=== PATIENT | male | born 1970 | race Hispanic/Latino ===

== ENCOUNTER 2017-03-20 12:47 | Inpatient (IN) ==
[2017-03-20 14:50] LABS: MANUAL DIFF NEEDED? NO
[2017-03-20 15:08] LABS: BASO% 0.3 % (0.0-0.8); HEMATOCRIT 20.4 % (42.0-52.0); HEMOGLOBIN 6.7 g/dL (14.0-18.0); IMM GRAN# 0.03 X1000 (0.0-0.04); IMM GRAN% 0.3 % (0.0-0.5); LYMPH# 2.02 X1000 (1.2-3.4); LYMPH% 20.2 % (20.5-51.1); MCH 29.3 PG (27-31); MCHC 32.8 g/dL (33-37); MCV 89.1 FL (81-99); NEUT% 69.2 % (42.2-75.2); PLT 288 X1000 (130-400); RBC 2.29 XMIL (4.7-6.1)
[2017-03-20 15:10] LABS: INR 1.08; PROTIME 11.4 Seconds (9.2-11.7); PTT 33.9 Seconds (22.0-36.0)
[2017-03-20 15:42] LABS: FERRITIN 694 ng/mL (30-400)
[2017-03-20 15:52] LABS: CALCIUM 6.8 mg/dL (8.8-10.2); POTASSIUM 4.8 mmol/L (3.5-5.1); TOTAL BILIRUBIN 0.44 mg/dL (0.20-1.00); TOTAL PROTEIN 6.2 g/dL (6.3-8.3)
[2017-03-20] MEDS ORDERED: TYLENOL PO PRN (16:09)
--- NOTE | 2017-03-20 16:19 | HISTORY AND PHYSICAL ---
HISTORY OF PRESENT ILLNESS: A 46-year-old who started to feel pretty bad several weeks ago and has progressively gotten worse. General malaise, anorexia. He has lost a lot a weight. He feels cold, poor appetite. He has been followed by Dr. Nini bauman states for renal failure and he has approached end-stage and will need to initiate dialysis. OTHER PAST MEDICAL HISTORY: Hypertension. I think some hypercholesterolemia and diabetes. He has had pneumonia in the past that has required a chest tube in the left chest. FAMILY HISTORY: Noncontributory. ALLERGIES: No known drug allergies. SOCIAL HISTORY: Negative for alcohol or tobacco. REVIEW OF SYSTEMS: General: No weight gain. Actually he thinks he has lost about 30 pounds in last couple of months. Respiratory: No increased work of breathing or dyspnea. Cardiovascular: No chest pain or tachy palpitation. GI: Unremarkable. : Unremarkable. PHYSICAL EXAMINATION: VITAL SIGNS: Temperature 97.7 degrees, pulse 86, respirations 18, blood pressure 175/105. HEENT: Pupils equal, round, lungs are clear in all lung peralta. CARDIOVASCULAR: Regular rhythm and rate without murmur or S3. ABDOMEN: Soft. SKIN: Warm and dry. Weight 133 pounds. DIAGNOSTICS/LABORATORY: White count 9990, hematocrit 20, platelet count 288,000. Chemistry: Ferritin 694, vitamin B12 pending, folate 18.3, PT is 11.4, PTT was 33.9. LIST OF MEDICINES AT HOME: I do not have that list. ASSESSMENT AND PLAN: 1. End-stage renal disease, to initiate I believe hemodialysis. The plan is to put in a report and he feels pretty bad, general malaise. Volume status looks okay. His hematocrit is 20, hemoglobin 6.7, so we may decide to give him some blood when we initiate dialysis. 2. Anemia, normocytic, secondary to renal dysfunction, chronic disease. I did check a ferritin. It is 694. Folate is elevated and normal. 3. Diabetes mellitus type 2. We will check pattern sugars. 4. Hypertension. We will see what his home medications are and see if we can get his blood pressure down a little bit. cc: Nader Murillo MD
--- NOTE | 2017-03-20 17:24 | CONSULTATION ---
DATE OF CONSULTATION: 03/20/2017 Mr. Polo is a 46-year-old [place] male who is a patient of Dr. Roderick Ball. He is admitted through our emergency department earlier today with end-stage renal disease, and significant anemia. We were asked to evaluate him for access including a Perm-A-Cath and peritoneal dialysis catheter per Dr. Terrazas. PAST MEDICAL HISTORY: Hypertension, pneumonia, left chest tube, diabetes, hypercholesterolemia. FAMILY HISTORY: Noncontributory. ALLERGIES: No known drug allergies. MEDICINES: Unknown. SOCIAL HISTORY: Does not smoke. REVIEW OF SYSTEMS: A 14-point review of systems was performed and except for being slim and not feeling well related to the history of present illness it is essentially negative. PHYSICAL EXAMINATION: General: Mr. Polo is a middle aged, [place] male who looks chronically ill and he is very slim. He is awake, cooperative. He has no jaundice. No oral lesions. No cervical or supraclavicular lymphadenopathy. Heart: Has a regular rate. Lungs: Clear to auscultation and percussion bilaterally. Abdomen: Flat. There is no palpable mass. No previous scars. No evidence of hernia. No costovertebral tenderness. Rectal Exam: Was not performed. He does have palpable femoral pulses. He has no peripheral edema. Neurologic: No neurologic deficits. His hematocrit is 20%. His BUN and creatinine are 81 and 10.9. PLAN: 1. Right Perm-A-Cath using fluoroscopy. 2. Laparoscopic assisted peritoneal dialysis catheter. I have discussed both of these procedures in detail with the patient at the bedside this evening including risks of bleeding, infection, nonfunctional catheters, injury to intra-abdominal contents with catheter placement or trocar placement. Possible pneumothorax. He understands the need for both of these catheters and the risks and wants to proceed. cc: Rosy Aguilar MD
[2017-03-20] MEDS: APRESOLINE PO SCH (18:58)
[2017-03-20] MEDS ORDERED: SODIUM BICARBONATE 8.4% 150 MEQ in D5W 1,000 ML IV SCH (21:58)
[2017-03-20] MEDS: SODIUM BICARBONATE PO SCH (22:33)
[2017-03-20] MEDS ORDERED: LABETALOL IV ONE (23:59)
[2017-03-21] MEDS: PRILOSEC PO SCH (06:34)
[2017-03-21] MEDS ORDERED: XYLOCAINE 1%/EPI 1:100,000 ONE (06:42)
[2017-03-21] MEDS ORDERED: NS 250 ML ONE (06:42)
[2017-03-21] MEDS ORDERED: HEPARIN ONE ×5 (06:42→09:31)
[2017-03-21] MEDS ORDERED: TIGHT: 0.2 ML/HR MISC PRN (07:13)
[2017-03-21] MEDS ORDERED: HEPARIN IV PRN (07:13)
[2017-03-21] MEDS ORDERED: NS 2,000 ML MISC PRN (07:13)
[2017-03-21] MEDS: SODIUM BICARBONATE PO SCH ×3 (08:04→18:09)
[2017-03-21] MEDS: APRESOLINE PO SCH ×3 (08:04→18:09)
[2017-03-21] MEDS ORDERED: KEFZOL ONE (08:20)
[2017-03-21] MEDS ORDERED: MARCAINE 0.25% PF/EPI 1:200,000 ONE (08:21)
[2017-03-21] MEDS ORDERED: NS 500 ML ONE (08:22)
--- NOTE | 2017-03-21 08:42 | CONSULTATION ---
DATE OF CONSULTATION: 03/21/2017 REASON FOR CONSULTATION: Chronic kidney disease stage 5 with uremia. HISTORY OF PRESENT ILLNESS: Mr. Polo is a 46-year-old man with diabetes and poorly- managed renal failure. We have been discussing ESRD management as an outpatient, and he has been somewhat reluctant to proceed, such that he skipped his appointment with the surgeon. He came to the office yesterday with profound weakness, fatigue, anorexia, nausea, and stated he was ready to begin treatment. His plan is for peritoneal dialysis, but he is in need of dialysis marginally, so we will begin hemodialysis with a tunneled catheter, and then transition. PAST MEDICAL HISTORY: As above. He has diabetes, hypertension, hyperlipidemia. HOME MEDICATIONS: Include lisinopril, sitagliptin, ondansetron, multivitamin. ALLERGIES: None. SOCIAL HISTORY: He drives a truck. No alcohol or tobacco. , has children. FAMILY HISTORY: Noncontributory. REVIEW OF SYSTEMS: Otherwise noncontributory. PHYSICAL EXAMINATION: Vital Signs: Blood pressure 162/90, heart rate 102, respirations 16, afebrile. General: He is in no acute distress. Skin: Warm and dry. HEENT: Conjunctivae are pale. Oropharynx is clear. Neck: Supple. Neck veins are not distended. Heart: Regular without gallops. Lungs: Equal breath sounds. No crackles or wheezes. Abdomen: Soft, nontender. Bowel sounds present. Extremities: Minimal edema. No clubbing or cyanosis. IMPRESSION: 1. Chronic kidney disease stage 5. We have had an ongoing discussion about uremia, uremic symptoms, hemodialysis, peritoneal dialysis, including risks and benefits of both, and he understands and is agreeable to proceed. I have asked Dr. Aguilar to place a tunneled dialysis catheter and a peritoneal dialysis catheter at the same time today, and he will then have hemodialysis today and consecutively for 3 days. Today's treatment will be short, for 2 hours, with 200 blood flow and 1 L ultrafiltration using a 2-potassium bath. 2. Metabolic acidosis. He was started on oral bicarbonate last night, but we will address this with dialysis going forward. 3. Anemia. Hemoglobin is below 7, so I will type and cross and give 1 unit of packed red blood cells. 4. Hypertension. We will continue his current treatment, and reassess as he is treated. cc: Dayday Terrazas MD
[2017-03-21] MEDS ORDERED: NS 2,000 ML ONE (09:17)
[2017-03-21] MEDS ORDERED: KEFZOL 1 GM/D5W 1 GM/50 ML IVPB ONE (09:18)
--- NOTE | 2017-03-21 09:43 | PROGRESS NOTE ---
DATE: 03/21/2017 SUBJECTIVE: He states he feels about the same. He did get some sleep last night. He remains afebrile. OBJECTIVE: Vital Signs: Temperature 97.9, pulse 100, respirations 16, blood pressure 160/90. Eyes: Pupils are equal, round. Lungs: Are clear in all lung peralta. Cardiovascular: Exam regular rhythm and rate without murmur or S3. Abdomen: Soft. Skin: Warm and dry. LAB: White count 9990, hematocrit 20, platelet count 288,000 from yesterday. Creatinine is 10.9, sodium 141, potassium 4.8, chloride 112, bicarb 8. Anion gap was 21. Calcium 6.8, B12 and folate looked good. ASSESSMENT AND PLAN: 1. End-stage renal disease. To pursue hemodialysis. Dr. Aguilar consulted. He will put in a right PermCath using fluoroscopy and then laparoscopic-assisted peritoneal dialysis catheter as he is going to pursue peritoneal dialysis. The renal ultrasound which was done June 2016 was a negative exam. 2. Just general malaise. He has lost weight. Nutrition, protein calorie malnutrition. He hopefully can improve his appetite and p.o. intake as his azotemia has improved. 3. Diabetes mellitus type 2. Follow pattern sugars. 4. Hypertension. Review of his orders. I do not see any change at this point. Note, that I did put him on some Apresoline, blood pressure looks better. cc: Nader Murillo MD
[2017-03-21] MEDS ORDERED: EPHEDRINE ONE (11:18)
[2017-03-21] MEDS ORDERED: XYLOCAINE-MPF 2% ONE (11:18)
[2017-03-21] MEDS ORDERED: QUELICIN (DOSE) ONE (11:19)
[2017-03-21] MEDS ORDERED: 1/2 NS 500 ML ONE (11:19)
[2017-03-21] MEDS: MORPHINE ONE ×2 (11:22→11:35)
--- NOTE | 2017-03-21 11:37 | OPERATIVE NOTE ---
PROCEDURE DATE: 03/21/2017 PREOPERATIVE DIAGNOSIS: End-stage renal disease requiring dialysis. POSTOPERATIVE DIAGNOSIS: End-stage renal disease requiring dialysis. PRINCIPAL PROCEDURE: 1. Right internal jugular PermCath using ultrasound and fluoroscopy. 2. Laparoscopic assisted placement of intra-abdominal peritoneal dialysis catheter. SURGEON: Dr. Rosy Aguilar. PHONE BANKER: vidal Hinescontrol systems technician. ANESTHESIA: General in addition to local anesthetic. ESTIMATED BLOOD LOSS: 20 mL. DRAINS: None. INDICATIONS: Mr. Justino Polo is a 46-year-old, slim Citizen Of [place] male who has end-stage renal disease and needs hemodialysis. We were also asked to place the peritoneal dialysis catheter by his cook starch, Dr. Terrazas. FINDINGS: These were 2 separate procedures in 2 different areas of the body. We placed the right internal jugular PermCath first and then we re-prepped and went to the abdomen to place the peritoneal dialysis catheter. We felt that both catheters were in good position at the end of the these 2 procedures and were both were functioning well. DESCRIPTION OF PROCEDURE: The patient was brought to the operating room, placed supine, received general anesthesia, was intubated. His right neck, shoulder, and anterior chest were prepped and draped within a sterile field. He received Ancef prophylactically. We turned his head to the left. We used an Ioban on the skin. I used ultrasound to identify the right internal jugular vein between the 2 heads of the right sternocleidomastoid muscle, base of right neck. I used local anesthetic. Then I used an 18-gauge needle to access this internal jugular vein and through this needle, I placed a guidewire into the right side of the heart. I checked the position of the guidewire using fluoroscopy. I made a counterincision on the anterior right chest and tunneled a precurved, 19 cm in total length PermCath from the chest incision to the neck incision. Sequential dilators were placed over the guidewire. Then we placed a dilator and sheath over the guidewire into the superior vena cava. The dilator was removed and through the sheath, we placed the distal end of our precurved PermCath and placed it 13 cm into the superior vena cava. We peeled away the sheath. The catheter was functioning well. It was flushed with heparin saline. We secured the catheter to its exit site on the chest with two 2-0 nylon stitches. Then we closed the small incision at the base of the right neck with a 4-0 Monocryl subcuticular stitch. Steri- Strips were applied to the neck incision. A dry dressing was applied, followed by an OpSite to the exit site anterior right chest of the PermCath. We then directed our attention to the peritoneal dialysis catheter. We took down all the previous drapes. Then the abdomen was prepped and draped within the sterile field. Again, I used an Ioban on the abdomen. We began this procedure by making a small transverse incision just to the right of the midline below the umbilicus. This incision was made with a 15 blade scalpel. It was carried down through the skin into the subcutaneous tissue. Forceps and scissors were used to identify the anterior rectus sheath just to the right of the midline. Using a 15 blade scalpel, I made an incision in the anterior rectus sheath, bluntly divided the rectus muscle, and got to the posterior rectus sheath where I placed two 3-0 Prolene stay stitches. We lifted the posterior sheath up with scissors. We made an incision in the posterior sheath and the peritoneum. Then I placed a pigtail peritoneal dialysis catheter, which was on a guiding ismael, intra-abdominally and directed it into the pelvis. The ismael was removed from the catheter. We secured the 1st cuff of the peritoneal dialysis catheter to the posterior rectus fascia with our 3-0 Prolene stitches. We then tunneled the part of the catheter that was outside the abdomen in the subcutaneous tissue and it was brought out through a separate stab incision laterally, right abdomen. The 2nd cuff was in the subcutaneous tissue. We then closed the anterior rectus sheath around the catheter with 2-0 Vicryl stitches. We created a pneumoperitoneum through our peritoneal dialysis catheter by placing the CO2 tubing into our peritoneal dialysis catheter. I then placed a 5 mm trocar, left upper quadrant of the abdomen. We used a 5 mm camera to make sure that our peritoneal catheter was in good position and it was. We did not have to place another port to manipulate this catheter. It was directed inferiorly into the pelvis midline. We placed about 300 mL of heparin saline through this peritoneal dialysis catheter and it flushed well. It was laying within the fluid. The pneumoperitoneum was allowed to dissipate through our 5 mm port. The port was removed. The catheter at its exit site in the right side of the abdomen was secured to the skin with a 2-0 nylon stitch. Then all skin incisions were closed with 4-0 Monocryl subcuticular stitches. Steri-Strips were applied. A dry dressing and OpSite were applied at the exit site of the peritoneal dialysis catheter. These were 2 separate procedures in 2 separate areas of the body. He tolerated both of them well. Both catheters we felt were functioning and were in good position. Plans are for him to go to the recovery room and then be readmitted to the floor for consideration of dialysis later today. cc: oRsy Aguilar MD
[2017-03-21] MEDS ORDERED: FENTANYL ONE (12:28)
[2017-03-21] MEDS ORDERED: DIPRIVAN 1% ONE (12:29)
[2017-03-21] MEDS: ZOFRAN IV PRN (18:38)
[2017-03-21] MEDS: PERIDEX MT SCH (20:27)
[2017-03-22] MEDS: PRILOSEC PO SCH (06:03)
[2017-03-22] MEDS: ZOFRAN IV PRN ×3 (06:05→18:20)
[2017-03-22] MEDS ORDERED: NS 2,000 ML MISC PRN (07:24)
[2017-03-22] MEDS ORDERED: HEPARIN IV PRN (07:24)
[2017-03-22] MEDS ORDERED: TIGHT: 0.2 ML/HR MISC PRN (07:24)
[2017-03-22 08:26] LABS: MANUAL DIFF NEEDED? NO
[2017-03-22 08:46] LABS: BASO% 0.1 % (0.0-0.8); EOS# 0.01 X1000 (0.0-0.7); EOS% 0.1 % (0.0-10.0); HEMATOCRIT 23.2 % (42.0-52.0); HEMOGLOBIN 7.7 g/dL (14.0-18.0); IMM GRAN# 0.02 X1000 (0.0-0.04); IMM GRAN% 0.2 % (0.0-0.5); LYMPH# 0.88 X1000 (1.2-3.4); LYMPH% 9.9 % (20.5-51.1); MCH 29.2 PG (27-31); MCHC 33.2 g/dL (33-37); MCV 87.9 FL (81-99); MONO# 0.62 X1000 (0.11-0.59); MPV 10.9 FL (7.4-10.4); NEUT% 82.7 % (42.2-75.2); PLT 282 X1000 (130-400); RBC 2.64 XMIL (4.7-6.1)
[2017-03-22] MEDS ORDERED: NS 2,000 ML ONE (08:52)
[2017-03-22] MEDS ORDERED: HEPARIN ONE (08:53)
[2017-03-22 09:18] LABS: HEPATITIS PROFILE ACUTE SEE COMMENTS
[2017-03-22 09:33] LABS: ALBUMIN 3.2 g/dL (3.5-5.0); POTASSIUM 3.8 mmol/L (3.5-5.1)
--- NOTE | 2017-03-22 09:34 | PROGRESS NOTE ---
DATE: 03/22/2017 SUBJECTIVE: The patient states that he has continued to have severe nausea and vomiting, and has been unable to keep any food down to any extent. He is receiving antidiuretic. He continues to feel extremely poorly. He continues to have shortness of breath with ambulation and severe onset of fatigue with ambulation. He did undergo dialysis yesterday, and did not have any difficulties during that. OBJECTIVE: Vital Signs: Temperature 99.1 degrees, pulse 108, respiratory rate 16, blood pressure 169/89. Intake 800 mL; output 1 L. General: On exam, this is a middle-aged gentleman resting in bed. He is awake and alert. He does appear to feel poorly. He is in no acute distress. HEENT: Normocephalic, atraumatic. Conjunctivae remain very pale. AMAIRANI. Oral mucosa is moist. Tongue is midline. Neck: Supple. Trachea midline without JVD. Cardiovascular: Regular rate and rhythm. There is no murmur or gallop. Pulmonary: He has equal excursion. He is clear bilaterally. Abdomen: Soft, with positive bowel sounds. : Not inspected. He is voiding with hemodialysis assist. Extremities: Trace pretibial edema. No clubbing or cyanosis. He is moving his extremities. Integumentary: Skin is warm and dry. There is a tunneled dialysis catheter noted to the right upper chest wall. Insertion site clean, dry, and intact, and dressing intact. LAB DATA: Pending. ASSESSMENT: 1. Chronic kidney disease V with severe uremia, nausea, vomiting, severe fatigue. The patient had a tunneled dialysis catheter and a peritoneal dialysis catheter placed yesterday. Patient underwent hemodialysis without difficulty. We will plan to dialyze him again today on a 2 K bath with removal of 1-2 L of 3 hour treatment on low-flow as this is his second today. 2. Profound anemia. The patient on admission to the hospital had a hemoglobin of less than 7. He had symptomatic anemia with shortness of breath, chest pain and severe fatigue on exertion. Of note, the patient had reported at one point that he had difficulty even walking across the room. We are checking labs this morning. He did receive 1 unit of packed red blood cells. We will add the erythropoietin. We would prefer to withhold administering packed red blood cells as he is in an age group that has a good chance of transplant in the future. 3. Acidosis. He had severe acidosis on admission. He was started on bicarbonate. He was treated with dialysis yesterday. Again, we are checking labs this morning; they are pending. We will again treat with dialysis today. 4. Hypertension. His blood pressure has been difficult to control while he has been in the hospital. He had been on lisinopril at home. We may need to add adjunct therapy for management. Continues to assess as this may improve as he has continued dialysis. PLAN: Plan is for patient to undergo a third dialysis treatment in the morning. At that time if he does have an outpatient schedule in place and meets criteria from the primary standpoint for discharge, we would be in agreement for him to go home after dialysis Saturday. Dictated by HORACIO Alvarez for Dayday Terrazas MD cc: Dayday Terrazas MD
[2017-03-22 09:36] LABS: CALCIUM 7.1 mg/dL (8.8-10.2)
[2017-03-22] MEDS ORDERED: ZOFRAN ONE (13:01)
[2017-03-22] MEDS ORDERED: SODIUM CHLORIDE 0.9% 10 ML ONE (13:06)
[2017-03-22] MEDS: SODIUM BICARBONATE PO SCH ×3 (13:43→18:19)
[2017-03-22] MEDS: PERIDEX MT SCH ×2 (13:44→21:18)
[2017-03-22] MEDS: APRESOLINE PO SCH ×3 (13:44→18:19)
--- NOTE | 2017-03-22 14:26 | PROGRESS NOTE ---
DATE: 03/22/2017 SUBJECTIVE: Going to undergo dialysis today and feels about the same. OBJECTIVE: Vital Signs: Temperature 98.4 degrees, pulse 100, respirations 18, blood pressure 191/103. Weight 145. HEENT: Pupils are equal and round. Neck: CVP less than 6 cm. Lungs: Clear in all lung peralta. Cardiovascular: Regular rhythm and rate, without murmur or S3. URINE OUTPUT: With dialysis, recorded 4000 mL. ASSESSMENT AND PLAN: 1. End-stage renal disease, chronic kidney disease stage 5, severe uremia, nausea, vomiting, and severe fatigue. Initiating hemodialysis and then I think the plan is to place a peritoneal dialysis catheter, which was placed yesterday. 2. Profound anemia. Aware. Hemoglobin less than 7. He had symptomatic anemia, shortness of breath. I think the plan is to give him some blood, 1 unit of blood with dialysis. 3. Acidosis. Severe acidosis on admission. Started on bicarbonate and I am going to treat the dialysis. 4. Hypertension. Blood pressure is still a little elevated. Will follow and see how he does after dialysis. I started him on some Apresoline and I think we can increase that. Will go up to 50 mg p.o. t.i.d. cc: Nader Murillo MD
[2017-03-23] MEDS: PRILOSEC PO SCH (06:18)
[2017-03-23] MEDS: SODIUM BICARBONATE PO SCH ×2 (08:35→13:31)
[2017-03-23] MEDS: PERIDEX MT SCH (08:35)
[2017-03-23] MEDS: APRESOLINE PO SCH ×2 (08:35→13:30)
[2017-03-23] MEDS ORDERED: PRINIVIL PO SCH (09:00)
[2017-03-23] MEDS ORDERED: NS 2,000 ML MISC PRN (09:08)
[2017-03-23] MEDS ORDERED: HEPARIN ONE (09:16)
[2017-03-23] MEDS ORDERED: NS 2,000 ML ONE (09:16)
--- NOTE | 2017-03-23 10:09 | PROGRESS NOTE ---
DATE: 03/23/2017 SUBJECTIVE: The patient is sitting up in bed. He hopes to go home today. OBJECTIVE: Vital Signs: Temperature 98.3 degrees, pulse 100, respiratory rate 18, blood pressure 162/89. Output: He had 2 L removed on dialysis. PHYSICAL EXAMINATION: General: This is a middle-aged gentleman resting in bed. He is awake and alert in no acute distress. HEENT: Normocephalic, atraumatic. Oral mucosa moist. Neck is supple. Trachea midline. No JVD. Cardiovascular: Regular rate and rhythm. Pulmonary: Equal excursion. He is clear bilaterally. Abdomen is soft with positive bowel sounds. He has a peritoneal dialysis catheter noted to the right lower quadrant. It is clean, dry and intact. : Not inspected. He is voiding. Extremities: There is no clubbing, cyanosis or edema today. He is moving all extremities and he is ambulatory. Integumentary: Tunnel dialysis catheter noted to right upper chest wall, clean , dry, and intact. No bleeding noted. LAB DATA: Hemoglobin 7.7, hematocrit 23.2, and platelet count of 282,000. Sodium 145. Potassium 3.8, CO2 of 16. Creatinine 8.2. Phosphorus 7.5. These labs were on 2016. ASSESSMENT AND PLAN: 1. Chronic kidney disease with severe uremia, nausea, vomiting, and severe fatigue. The patient has undergone two dialysis treatments. He has had some improvement with symptoms. I will plan to dialyze him again today on a 3 K bath/UF 1-2 L if tolerated for 4- hour treatment. He has an outpatient plan in progress. This information will be given to the patient today. From a renal standpoint, he can be discharged after his dialysis if vitals remain stable at the discretion of the primary. 2. Profound anemia. Hemoglobin remains quite low. He did receive 1 unit of packed red blood cells secondary to a hemoglobin of less than 7 while he has been in the hospital. We will continue to treat this with erythropoietin while as an outpatient. Again, we would refrain from transfusing blood unless it was an absolute necessity secondary to his young age and future transplant status. 3. Acidosis. This is improving. 4. Hypertension. He had hydralazine started in the hospital. I am restarting his home lisinopril. Seen, data reviewed, discussed with Tirso Pool on 03/23/17. I agree with the above assessment and plan of care. rg Dictated by HORACIO Alvarez for Dayday Terrazas MD cc: Dayday Terrazas MD [facility]
--- NOTE | 2017-03-23 10:17 | PROGRESS NOTE ---
DATE: 03/23/2017 SUBJECTIVE: Feels a little better. Breathing a little better. OBJECTIVE: Vital Signs: Afebrile, temp 98.3 degrees, pulse 100, respirations of 18. Blood pressure is between 162-191/89-103. Eyes: Pupils are equal, round. Lungs: Clear in all lung peralta. Cardiovascular exam: Regular rhythm and rate without murmur or S3. Abdomen: Soft. ASSESSMENT AND PLAN: End-stage renal disease for hemodialysis today. Volume status is good. Electrolyte good. Acid status improving. We will discuss with Dr. Terrazas when he gets to go home. The plan is to try and to put in a peritoneal catheter for peritoneal dialysis. Review of orders, review of lab: No changes at this time. cc: Nader Murillo MD
[2017-03-23] MEDS ORDERED: EPOGEN SUBQ ONE (11:09)
[2017-03-23 12:45] VITALS: BP 149/79
--- NOTE | 2017-03-23 16:32 | DISCHARGE SUMMARY ---
ADMISSION DATE: 03/20/2017 DISCHARGE DATE: 03/23/2017 HOSPITAL COURSE: Presented with renal function that has deteriorated, symptoms of azotemia, malaise, anorexia and significant acidosis. He was initiated on hemodialysis. Dr. Aguilar placed a right internal jugular PermCath using ultrasound and fluoroscopy. The laparoscopic placement of intraabdominal peritoneal dialysis catheter. The patient showed continued clinical improvement. [place] he could go home 03/23/2017. He will follow up as an outpatient to initiate peritoneal dialysis. He has an outpatient plan and progress, anemia remained quite low, he did get 1 unit of packed red blood secondary his hemoglobin being less than 7. Acidosis showed significant improvement. DISCHARGE ORDERS: He will continue his iron tablet which is Folivane-Plus capsule 1 a day and then lisinopril 20 mg a day, Januvia 100 mg daily, sodium bicarbonate 650 mg b.i.d. I did add Apresoline to his regimen as blood pressure was running pretty high. Blood pressure has come down nicely. Will continue Apresoline 25 mg b.i.d. cc: Nader Murillo MD
[2017-03-24] MEDS ORDERED: VENOFER 200 MG in NS 150 ML IV SCH (09:00)
== END 2017-03-23 17:25 | disposition home or self-care (01) ==
LOC: DIRADM 12:47 → 4N 13:49
PROVIDERS: ATTEND Emergency Medicine

== ENCOUNTER 2017-06-19 09:25 | Observation (INO) ==
--- NOTE | 2017-06-19 07:32 | EKG Report ---
Test Performed on : 06/19/2017 07:18:41 AM Test Reason : elevated BP Blood Pressure : / mmHG Vent. Rate : 100 BPM Atrial Rate : 100 BPM P-R Int : 156 ms QRS Dur : 080 ms QT Int : 366 ms P-R-T Axes : 087 078 078 degrees QTc Int : 472 ms Normal sinus rhythm. Normal ECG No previous ECGs available Confirmed by Roddy Conley DO ([id number]) on 06/22/2017 12:27:10 PM
[2017-06-19 07:37] LABS: MANUAL DIFF NEEDED? NO
[2017-06-19 07:45] LABS: BASO% 0.4 % (0.0-0.8); EOS# 0.26 X1000 (0.0-0.7); EOS% 2.4 % (0.0-10.0); HEMATOCRIT 38.8 % (42.0-52.0); HEMOGLOBIN 13.2 g/dL (14.0-18.0); IMM GRAN# 0.03 X1000 (0.0-0.04); IMM GRAN% 0.3 % (0.0-0.5); LYMPH# 2.52 X1000 (1.2-3.4); LYMPH% 23.6 % (20.5-51.1); MCH 29.7 PG (27-31); MCV 87.2 FL (81-99); MONO# 0.71 X1000 (0.11-0.59); MONO% 6.6 % (1.7-9.3); MPV 11.5 FL (7.4-10.4); NEUT% 66.7 % (42.2-75.2); PLT 227 X1000 (130-400); RBC 4.45 XMIL (4.7-6.1)
[2017-06-19 08:02] LABS: CALCIUM 7.5 mg/dL (8.8-10.2); POTASSIUM 3.4 mmol/L (3.5-5.1)
--- NOTE | 2017-06-19 09:23 | CONSULTATION ---
DATE OF CONSULTATION: 06/19/2017 REFERRING PHYSICIAN: Dr. Dayday Terrazas M.D. PRIMARY CARE PROVIDER: Dr. Jovan Ball D.O. ADMITTING HOSPITALIST: Dr. Elton Whalen M.D. INDICATION FOR CONSULTATION: 1. Nausea with vomiting. 2. Diarrhea. 3. Unplanned weight loss. 4. Anemia. 5. Weakness. 6. Fatigue. HISTORY OF PRESENT ILLNESS: The patient is a 46-year-old male who presents with a 2 year history of the above GI concerns. He is currently on peritoneal dialysis secondary to end-stage renal disease from hypertension and diarrhea. Because of his persistent GI symptoms and failure to respond to conservative management, he was referred for endoscopic evaluation. However, on admission to outpatient surgery, he was noted to have a blood pressure of 220/ 130 with a pulse of 95. He received labetalol 20 mg and Apresoline 10 mg. Post treatment, his blood pressure remains 182/113. His pulse is 103 with respirations 16 and temp of 98.8 degrees. In light of his persistently elevated blood pressure, it is recommended that he be admitted for further management of his hypertension prior to endoscopic therapy. Of note, the patient will require ampicillin 1 g and gentamicin 0.6 mg/kg IV prior to his next endoscopic therapy. He received the dose of gentamicin but the ampicillin was not administered prior to cancelling his procedure. PAST MEDICAL HISTORY: 1. Degenerative disk disease. 2. Diabetes. 3. Hyperlipidemia. 4. Hypertension. 5. Sarcoidosis. 6. Thyroid disease. 7. Hypercalcemia. 8. Osteoarthritis. 9. Vitamin B12 deficiency. 10. Vitamin D deficiency. PAST SURGICAL HISTORY: 1. Eye surgery with retinal detachment in the right eye, status post repair. 2. Placement of peritoneal dialysis catheter. MEDICATION ALLERGIES: None. HOME MEDICATIONS: 1. Folivane Plus capsule 125/1 mg daily. 2. Januvia 100 mg once daily. 3. Lisinopril 20 mg once daily. 4. Zofran 4 mg every 6-8 hours as needed. 5. Questran Light 4 g packet once daily. 6. Sodium bicarbonate tablets 650 mg 2 twice a day. 7. Tums extra-strength 300 mg as needed. FAMILY HISTORY: Remarkable for pancreatic cancer in his father. SOCIAL HISTORY: Negative for alcohol, tobacco, or recreational drug use. He is a former smoker who stopped smoking in 1994. He is with 3 children and works as a class b truck driver. REVIEW OF SYSTEMS: Positive for appetite loss, weight loss, fatigue, dizziness , double vision, intermittent dysphagia, weakness and fatigue associated with anemia. In addition, he reports diarrhea, nausea with vomiting, rectal irritation with defecation, heartburn, indigestion, and new fecal incontinence. PHYSICAL EXAMINATION: Vital signs: On exam, his blood pressure is 182/113, pulse 103, respirations 16, temperature of 98.8 degrees. His oxygen saturation is 95% on room air. HEENT: Negative for oropharyngeal mucosal lesions. Pulmonary: Lungs are clear to auscultation with normal expiratory effort. Cardiovascular: Reveals regular rate and rhythm with no murmurs, gallops, or rubs. Abdomen: Reveals normoactive bowel sounds. The abdomen is soft, nontender, with no rebound or guarding. There is a peritoneal dialysis catheter in the right lower quadrant. Extremities: Negative for cyanosis, clubbing, or edema. He has evidence of muscle wasting. IMPRESSIONS: 1. Nausea with vomiting. 2. Diarrhea. 3. Anemia. 4. Abnormal weight loss. 5. Dysphagia. 6. Anorexia. 7. Fecal incontinence. 8. Diabetes mellitus 2. 9. Uncontrolled primary pulmonary hypertension. 10. End-stage renal disease. RECOMMENDATION: 1. Because of the patient's uncontrolled blood pressure that has been poorly responsive to labetalol and Apresoline, we will cancel his procedure today. 2. Per Dr. Terrazas, I will admit the patient to the hospitalist service for further management of his hypertension. 3. We will reschedule an EGD with dilation to assess the nausea with vomiting, diarrhea, dysphagia, and anemia once his blood pressure is better controlled. 4. He has never had a screening colonoscopy. We will perform that at the same time that we perform his EGD. 5. Given that the patient's endoscopy is on hold, please obtain a gastric emptying study as an inpatient to further evaluate the nausea with vomiting and loss of appetite pending endoscopic evaluation. 6. Additional recommendations to follow based on his clinical course. cc: MD Dayday Eaton MD Thomas E. Lockard, DO Raphael K. Quansah, MD MTDD
[~2017-06-19 09:25] MED LIST: 1/2 NS 1,000 ML IV SCH; 1/2 NS 500 ML ONE; AMPICILLIN 1 GM/NS 1 GM/50 ML IVPB IV ONE; APRESOLINE ONE; DIPRIVAN 1% ONE; FENTANYL ONE; GENTAMICIN 80 MG/NS 80 MG/50 ML IVPB IV ONE; GENTAMICIN IV PER PHARMACY MISC SCH; LABETALOL IV ONE; LR 1,000 ML ONE; SODIUM CHLORIDE 0.9% INJ SCH
[2017-06-19 10:31] LABS: ALBUMIN 2.8 g/dL (3.5-5.0); DIRECT BILIRUBIN 0.2 mg/dL (0.00-0.20); TOTAL BILIRUBIN 0.67 mg/dL (0.20-1.00); TOTAL PROTEIN 5.6 g/dL (6.3-8.3)
[2017-06-19] MEDS ORDERED: APRESOLINE IV PRN (11:24)
--- NOTE | 2017-06-19 12:34 | Diag Imaging Result Doc PS360 ---
EXAM: CT HEAD W/O CONTRAST HISTORY: htn urgency, weakness/dizziness TECHNIQUE: CT of the head without contrast with dose reduction (clarity.) COMMENT: There are calcifications in the vertebral and internal carotid arteries. There is no evidence of mass effect, bleed, or abnormal extra-axial fluid collection. There are no previous studies available for comparison. The visualized paranasal sinuses are clear. There is no evidence of acute bony disease. IMPRESSION: No evidence of acute intracranial disease. Electronically signed by Raheel Galarza 06/19/2017 12:32 PM
--- NOTE | 2017-06-19 12:35 | Diag Imaging Result Doc PS360 ---
EXAM: CHEST-2 VIEWS HISTORY: htn urgency TECHNIQUE: COMPARISON: None. FINDINGS: The lungs are well expanded. The heart is not enlarged. The vessels are not distended. There are no infiltrates. No pleural effusions although I believe there is minimal pleural thickening in the left base. IMPRESSION: No acute abnormality. Electronically signed by Daniele Florez 06/19/2017 12:32 PM
--- NOTE | 2017-06-19 12:37 | Diag Imaging Result Doc PS360 ---
EXAM: CT ABDOMEN/PELVIS W/O CONTRAST HISTORY: n/v/d x years TECHNIQUE: CT urogram without contrast with dose reduction (clarity.) COMMENT: There is a peritoneal dialysis catheter in the pelvis. There is extensive arteriosclerosis. There are some pleural and parenchymal fibrotic scars particularly in the lateral costophrenic sulcus on the left. There is no evidence of hydronephrosis. There is what appears to be a tiny calculus in the upper pole of the left kidney. There are no calcified gallstones. There is no evidence of bowel obstruction. The appendix is unremarkable in appearance. The urinary bladder is unremarkable. There is no evidence of acute disease in the visualized portions of the skeleton. IMPRESSION: Nonobstructing left nephrolithiasis. No evidence of acute disease. Electronically signed by Raheel Galarza 06/19/2017 12:35 PM
--- NOTE | 2017-06-19 12:55 | HISTORY AND PHYSICAL ---
COVER MAKER: Dr. Areli Bloom. HISTORICAL INTERPRETER: Dr. Dayday Terrazas. CHIEF COMPLAINT: Hypertension, nausea, vomiting and diarrhea. HISTORY OF PRESENT ILLNESS: Mr. Polo is a 46-year-old male, with a history of ESRD on peritoneal dialysis, diabetes mellitus and hypertension, who was scheduled today for EGD and colonoscopy after he has been complaining of diarrhea for multiple years, as well as nausea and vomiting. Preoperatively, the patient's blood pressure was noted to be greater than 220. The procedure was canceled and the patient was directly admitted to our service. The patient himself reports that over the past week or so he has been unsteady on his feet, a little bit dizzy and been having a headache. He denies any chest pain or shortness of breath. No abdominal pain. He does report diarrhea and vomiting, but this is chronic. No fevers, no chills. No cough or congestion. He was given labetalol and hydralazine preoperatively. This brought his blood pressure down to 180 systolic, but it was felt that he needed to be directly admitted for further treatment and evaluation. PAST MEDICAL HISTORY: 1. ESRD on peritoneal dialysis. 2. Hypertension. 3. Diabetes mellitus. 4. Chronic diarrhea and vomiting. SURGICAL HISTORY: He has had eye surgery and peritoneal dialysis catheter inserted. SOCIAL HISTORY: No tobacco, alcohol or drug use. He is . is at the bedside. He is on disability for ESRD. REVIEW OF SYSTEMS: Fourteen-point review of systems obtained and found to be negative with the exception of the HPI. ALLERGIES: No known drug allergies. HOME MEDICATIONS: 1. Apresoline 50 mg daily. 2. Iron with vitamin C one daily. 3. Lisinopril 20 mg daily. 4. Januvia 100 mg daily. 5. Sodium bicarbonate 650 mg b.i.d. PHYSICAL EXAMINATION: VITAL SIGNS: Blood pressure is 166/90, heart rate 106, respiratory rate is 12, O2 saturation 98% on room air. GENERAL: This is a frail appearing, 46-year-old male, lying in hospital bed in no acute distress. NEUROLOGIC: The patient is awake and alert. He follows commands without focal deficits. HEENT: Head is atraumatic, normocephalic. His pupils are equal, round, reactive to light. Oral mucosa is moist. NECK: Trachea is midline. No JVD. CHEST: Clear to auscultation bilaterally. CV: Regular rate and rhythm. S1, S2 is noted. No murmurs. GI: Soft, nondistended, nontender. Bowel sounds are positive. EXTREMITIES: No edema, clubbing or cyanosis. Pulses are diminished, but palpable bilaterally. DIAGNOSTIC DATA: WBC 10.68, hemoglobin 13.2, hematocrit 38.8, platelet count 227. Sodium 133, potassium 3.4, chloride 98, CO2 22, anion gap 13, BUN 37, creatinine 7.1, glucose 252. Calcium 7.5, total bilirubin 0.67 and direct bilirubin 0.2. AST 14, ALT 18, alkaline phosphatase 92, albumin 2.8. ASSESSMENT AND PLAN: 1. Hypertensive urgency: The patient exhibits no encephalopathic features; however, we are going to check a head CT given the fact that he has had some dizziness and unsteadiness. He is only on lisinopril at home which means we have quite a bit of room to go up on blood pressure medications. Will start by adding Norvasc 5 mg twice daily. In addition to his lisinopril, will add more medications or increased dosages if necessary. 2. Chronic nausea, vomiting, diarrhea: Will go ahead and check a CT of his abdomen and pelvis as well. Add antiemetics and Dr. Bloom is following along. 3. ESRD on peritoneal dialysis: Dr. Terrazas has been consulted. Overall his acid-base electrolytes and hemoglobin and hematocrit are all stable. 4. Diabetes mellitus: We will stop his Januvia. Add pattern sugars and sliding scale insulin. Check hemoglobin A1c. 5. Deep vein thrombosis prophylaxis: This will be provided with heparin. Further recommendations to follow. Dictated by HORACIO Mcwilliams for Malou Mccarthy MD cc: HORACIO Mcwilliams MD
[2017-06-19] MEDS: HUMALOG SUBQ SCH ×3 (13:15→20:10)
[2017-06-19 13:35] LABS: HEMOGLOBIN A1C 12.3 % (4.8-6.0)
[2017-06-19] MEDS: PROTONIX IV SCH ×2 (16:01→20:10)
[2017-06-19] MEDS: NORVASC PO SCH ×2 (16:01→20:10)
[2017-06-19] MEDS ORDERED: KLOR-CON PO ONE (18:10)
--- NOTE | 2017-06-19 18:31 | CONSULTATION ---
DATE OF CONSULTATION: 06/19/2017 REASON FOR CONSULTATION: Assistance with management of hypertension and renal failure. CONSULTING PHYSICIAN: Dr. Bloom who called me by phone from the GI lab. HISTORY OF PRESENT ILLNESS: Mr. Polo is a 46-year-old man, who recently initiated renal replacement therapy using peritoneal dialysis. He has diabetic nephropathy that is stage 5. He also has hypertension, as well as chronic nausea and diarrhea. He had plans for panendoscopy by Dr. Bloom today. He presented to the outpatient surgery area with marked hypertension and because of this, his procedure was delayed because his systolic was over 200. He was also having a headache, dizziness and some unsteadiness on his feet. This is actually chronic. He did not take his blood pressure medicines either the morning of admission or the day prior. No chest pain, palpitation, shortness of breath. No swelling. He is having no problems with his dialysis. PAST MEDICAL HISTORY: As above. HOME MEDICATIONS: Include Apresoline, iron, lisinopril, Januvia, sodium bicarbonate. ALLERGIES: None. SOCIAL HISTORY: No alcohol or tobacco. He is and lives with his who is currently attending him. No alcohol or tobacco. FAMILY HISTORY: Noncontributory. REVIEW OF SYSTEMS: Otherwise noncontributory. PHYSICAL EXAMINATION: Vital Signs: Blood pressure 138/74, heart rate 103, respiration 18, afebrile. Generally: He is a middle-aged man sitting in a wheelchair in no acute distress. Skin: Warm and dry. HEENT: Conjunctivae are pink and moist. Pupils are equal and round. Oropharynx is dry. Neck: Supple. Trachea is midline. Neck veins are not distended. Heart: Regular with S4 gallop. No murmurs. Lungs: Have equal excursion. Equal breath sounds. No crackles or wheezes. No accessory muscle use or retractions. Abdomen: Soft and nontender with normal bowel sounds. Exit site is nontender. Extremities: Have no edema, clubbing, or cyanosis. Neurologic Exam: Grossly nonfocal. LABORATORY DATA: Reviewed. IMPRESSION: 1. End-stage kidney disease. We will continue his routine dialysis prescription tonight. 2. Severe hypertension. Caused by missing his home medications. He has been treated with intravenous therapy in the emergency room. His home medications have been restarted. Blood pressure control is good at this point. 3. Electrolytes: Mild hypokalemia. I will address this with oral replacement. 4. Acid base. Serum bicarbonate is appropriate at 22. I will continue his home sodium bicarbonate. 5. Nausea, vomiting, diarrhea. We will allow Dr. Bloom to manage. cc: Dayday Terrazas MD
[2017-06-19] MEDS: HEPARIN SUBQ SCH (20:10)
[2017-06-19] MEDS: SODIUM BICARBONATE PO SCH (20:10)
[2017-06-20] MEDS: PROTONIX IV SCH ×3 (02:07→22:01)
[2017-06-20 07:03] LABS: HEMATOCRIT 37.4 % (42.0-52.0); HEMOGLOBIN 12.6 g/dL (14.0-18.0); MCH 30.7 PG (27-31); MCHC 33.7 g/dL (33-37); MPV 11.9 FL (7.4-10.4); RBC 4.11 XMIL (4.7-6.1)
[2017-06-20 07:37] LABS: ALBUMIN 2.4 g/dL (3.5-5.0); CALCIUM 7.8 mg/dL (8.8-10.2); POTASSIUM 3.6 mmol/L (3.5-5.1)
[2017-06-20] MEDS ORDERED: SITAGLIPTIN 100 MG PO SCH (09:00)
[2017-06-20] MEDS: HUMALOG SUBQ SCH ×4 (09:16→22:01)
[2017-06-20] MEDS: PRINIVIL PO SCH (09:18)
[2017-06-20] MEDS: SODIUM BICARBONATE PO SCH ×2 (09:18→22:00)
[2017-06-20] MEDS: APRESOLINE PO SCH (09:18)
[2017-06-20] MEDS: NORVASC PO SCH ×2 (09:18→22:00)
[2017-06-20] MEDS: HEMOCYTE PLUS CAPSULE PO SCH (09:19)
[2017-06-20] MEDS: HEPARIN SUBQ SCH ×2 (09:19→22:01)
[2017-06-20] MEDS: LANTUS SUBQ SCH (09:22)
--- NOTE | 2017-06-20 09:47 | PROGRESS NOTE ---
DATE: 06/20/2017 SUBJECTIVE: No nausea or vomiting. No headaches, no shortness of breath. OBJECTIVE: Vital Signs: Blood pressure 164/90, heart rate 98, respirations 20, afebrile. General: He is a thin, middle-aged man in no distress. Skin: Warm and dry. Eyes: Conjunctivae are pink. Pupils are equal. Neck: Neck veins are not distended. Heart: Regular with an S4. No rubs. Lungs: Have equal breath sounds. No crackles or wheezes. Abdomen: Soft, nontender. Bowel sounds are present. Extremities: Have no edema, clubbing, or cyanosis. LABORATORY DATA: Sodium 138, potassium 3.6, chloride 98, bicarbonate 21, BUN 38, creatinine 6.8, hemoglobin 12.6. IMPRESSION: 1. Hypertension. Controlled acceptably on his outpatient regimen. Okay to proceed with gastrointestinal procedures from my perspective. 2. End-stage kidney disease. Continue his standard peritoneal dialysis prescription. 3. Malnutrition. No changes. cc: Dayday Terrazas MD
--- NOTE | 2017-06-20 13:43 | PROGRESS NOTE ---
DATE: 06/20/2017 SUBJECTIVE: Patient reports feeling fine. Denies any headache, lightheadedness. OBJECTIVE: Vital Signs: Temperature 98.9, heart rate 98, respiratory rate 20, blood pressure 164/90, O2 saturation 98% on room air. General examination: This is a 46-year-old, male, lying in bed in no acute distress. HEENT: Head is normocephalic, atraumatic. Anicteric sclerae and pale conjunctivae. Mucous membranes moist. Neck: Supple. No JVD noted. No carotid bruits. No lymphadenopathy. No thyromegaly. Cardiovascular exam: S1, S2 heard. No murmurs, gallops, or rubs. Regular rate and rhythm. Respiratory exam: Clear bilaterally to auscultation. No work of breathing or using accessory muscles. Abdomen: Soft, a little bit distended. Nontender to palpation. Extremities: No clubbing, cyanosis, or edema. Peripheral pulses present in both legs. Neurological: Patient moves 4 extremities. Awake and alert. LABORATORY DATA: Reviewed. ASSESSMENT AND PLAN: 1. Hypertensive urgency. Patient now is feeling fine. This condition is completely resolved with blood pressure between 160s and 170s. 2. Chronic nausea and vomiting. Dr. Bloom is on board and apparently this patient was scheduled for esophagogastroduodenoscopy today. Will see if that can be done tomorrow. 3. End-stage renal disease on peritoneal dialysis. Dr. Terrazas following. 4. Diabetes mellitus type 2. We will stop Januvia. The patient is on sliding scale insulin. 5. Deep vein thrombosis prophylaxis on heparin. The patient is stable from my standpoint with blood pressure that is controlled, and also the patient is on peritoneal dialysis per Dr. Terrazas. The patient will be discharged from the hospital when cleared by GI. cc: Chris Smith MD
--- NOTE | 2017-06-20 21:05 | PROGRESS NOTE ---
DATE: 06/20/2017 SUBJECTIVE: The patient is feeling much better. His blood pressure is now under control. He has significant concerns about undergoing endoscopy and prepping for a colonoscopy. He is concerned that his elevated blood pressure was related to the GoLYTELY prep and would like to defer scheduling repeat endoscopy until Dr. Terrazas and I have had a chance to confer about his bowel prep and monitoring during the bowel prep. Unfortunately, tomorrow's operating room schedule is completely full. We will have to make arrangements for the patient to undergo a 2-day bowel prep as an outpatient and scheduled this procedure in the next 1-2 weeks. I will speak with Dr. Terrazas to discuss his care. At this time, I would continue supportive management. cc: MD Jovan Eaton DO Reginald D. Gladish, MD Cesar Garcia-Rodriguez, MD
[2017-06-21] MEDS: HUMALOG SUBQ SCH (07:03)
[2017-06-21 07:43] VITALS: BP 118/76
[2017-06-21] MEDS ORDERED: INSULIN PEN NEEDLES ONE (07:50)
[2017-06-21] MEDS: APRESOLINE PO SCH (09:44)
[2017-06-21] MEDS: NORVASC PO SCH (09:44)
[2017-06-21] MEDS: SODIUM BICARBONATE PO SCH (09:45)
[2017-06-21] MEDS: PRINIVIL PO SCH (09:45)
[2017-06-21] MEDS: HEPARIN SUBQ SCH (09:46)
[2017-06-21] MEDS: PROTONIX IV SCH (09:46)
[2017-06-21] MEDS: HEMOCYTE PLUS CAPSULE PO SCH (09:46)
[2017-06-21] MEDS: LANTUS SUBQ SCH (09:46)
--- NOTE | 2017-06-21 10:02 | PROGRESS NOTE ---
DATE: 06/21/2017 SUBJECTIVE: He is feeling well. He has been able to eat his breakfast. No shortness of breath. No nausea, vomiting or swelling. OBJECTIVE: Vital Signs: Blood pressure 118/76, heart rate 91, respiration 18, afebrile. General: He is in no distress. Skin: Warm and dry. Eyes: Conjunctivae are pink. Neck: Neck veins are not distended. Heart: Regular with S4. Lungs: Have equal breath sounds. No crackles or wheezes. Abdomen: Soft, nontender. Bowel sounds present. Extremities: Have no edema, clubbing, or cyanosis. IMPRESSION: 1. Hypertensive emergency. 2. End-stage renal disease. 3. Chronic nausea and vomiting. PLAN: His blood pressure is well controlled. He is euvolemic and well dialyzed. Dr. Bloom will not be able to perform endoscopy this week, so he can be discharged home and follow up with her as an outpatient. I have not changed his medication since admission, so he can simply continue what he was on previously. cc: Dayday Terrazas MD
--- NOTE | 2017-06-22 07:03 | DISCHARGE SUMMARY ---
ADMISSION DATE: 06/19/2017 DISCHARGE DATE: 06/21/2017 CONSULTATIONS: 1. Dr. Dayday Terrazas with Nephrology. 2. Dr. Areli Bloom with Gastroenterology. PERTINENT PROCEDURES: 1. Head CT showed no evidence of acute intracranial disease. 2. Abdomen and pelvis CT showed nonobstructive left nephrolithiasis. No evidence of acute disease. 3. Chest x-ray showed no acute abnormality. DISCHARGE DIAGNOSES: 1. Hypertensive urgency, resolved. 2. End-stage renal disease. The patient is euvolemic and will dialysize. 3. Chronic nausea and vomiting, stable. Patient was scheduled for an esophagogastroduodenoscopy and colonoscopy with Dr. Bloom; however, her schedule is full this week. Patient is stable and is appropriate for discharge and will follow up with Dr. Bloom on an outpatient basis. HOSPITAL COURSE: Mr. Polo is a 46-year-old male with history of end-stage renal disease on peritoneal dialysis, diabetes mellitus, hypertension, who was scheduled for an EGD and colonoscopy after he had been complaining of diarrhea for multiple years as well as nausea and vomiting. Preoperatively, the patient's blood pressure was noted to be greater than 220. The procedure was canceled, and the patient was directly admitted to our service. The patient, himself, reports that over the past week he has been unsteady on his feet, feeling a little dizzy and having a headache. He had been given labetalol and hydralazine preoperatively. This brought his blood pressure down to 180 systolically, but it was felt he needed to be directly admitted for further treatment and evaluation. He exhibited no encephalopathic features. They did check a head CT. It was negative. He was only on lisinopril at home, so, Norvasc 5 mg was added twice daily in addition to his lisinopril, as well as additional IV p.r.n. Given his chronic nausea and vomiting, they did do a CT of his abdomen and pelvis and added anti emetics and consulted Dr. Terrazas in reference to the end-stage renal disease on his peritoneal dialysis. His hypertensive urgency completely resolved. His blood pressures have been between 160 and 170s. His chronic nausea and vomiting have been stable. Dr. Bloom is unable to schedule the patient for his EGD and colonoscopy this week; so, Dr. Bloom has made arrangements for the patient to undergo a 2-day bowel prep as an outpatient and scheduled his procedure in the next 1-2 weeks. He is appropriate for discharge home today. VITAL SIGNS: Temperature is 99 degrees, heart rate 91, respirations 18, blood pressure is 118/76, O2 is 98% on room air. DISCHARGE DIET: Renal. HOME MEDICATIONS: Will be as per Dr. Herman. FOLLOWUP: Mr. Polo is being discharged back home. He will follow up with Dr. Bloom as instructed for his EGD and colonoscopy. He will continue on his peritoneal dialysis, as well as follow up with his primary care physician, Dr. Ball in 1-2 weeks. He can return to the ED for any worsening of symptoms. Dictated by HORACIO Mccoy for Chris Smith MD cc: MD Jovan Last,
== END 2017-06-21 14:27 | disposition home or self-care (01) ==
LOC: 3N 13:46
PROVIDERS: ATTEND Internal Medicine